=== PATIENT | female | born 1970 | race Caucasian/White ===

== ENCOUNTER 2017-08-10 10:32 | Emergency (ER) | payer BC ==
[~2017-08-10] VITALS: Ht 152.4 cm; Wt 68.0 kg
--- NOTE | 2017-08-10 10:50 | NUR ---
MSE COMPLETED, PT D/C'D HOME, ACI/WORK RELEASE GIVEN. PT AMBULATED W/O DIFF/TOOK ALL BELONGINGS.
[2017-08-10 10:51] VITALS: BP 133/72
== END 2017-08-10 10:52 | disposition home or self-care (01) ==
LOC: ER 10:32
DX: M54.5 Low back pain (principal)
CPT/HCPCS: 99283; A4663

== ENCOUNTER 2017-09-13 08:37 | Emergency (ER) | payer BC, OTHER ==
[~2017-09-13] VITALS: Ht 160 cm; Wt 68.0 kg
--- NOTE | 2017-09-13 09:02 | NUR ---
PT IN BED. PT A&OX4. PT COMPLAINS OF 9/10 LT SHOULDER PAIN X 3 DAYS. PT STATES INJURY OCCURRED WHILE "MOPPING." STRENGTH DEFICIT NOTED COMPARED TO RT ARM. CAP REFILL LESS THAN 3 SEC. CURRENTLY AWAITING MD MARRERO.
--- NOTE | 2017-09-13 10:36 | NUR ---
PT BACK FROM RADIOLOGY. AWAITING FURTHER MD ORDERS.
--- NOTE | 2017-09-13 11:01 | NUR ---
PER MD MARTINEZ, PT STABLE FOR DC. PT A&OX4. PT ABLE TO AMBULATE UNASSISTED W/ STEADY GAIT. PT DECLINED ARM SLING AND PO PAIN MEDS BEFORE DC. PT GIVEN WORK NOTE. PT GIVEN RX. PT GIVEN INSTRUCTIONS TO FOLLOW UP W/ PMD. PT VERBALIZED UNDERSTANDING OF THESE ORDERS.
[2017-09-13] MEDS ORDERED: IBUPROFEN 800 MG TABLET PO ONE (11:15)
[2017-09-13 11:40] VITALS: BP 128/80
[2017-09-13] MEDS ORDERED: LORAZEPAM 2 MG/1 ML VIAL ONE (11:43)
== END 2017-09-13 11:01 | disposition home or self-care (01) ==
LOC: ER 08:37
DX: S49.92XA Unspecified injury of left shoulder and upper arm, initial encounter (principal); X58.XXXA Exposure to other specified factors, initial encounter; Y93.89 Activity, other specified; Y92.89 Other specified places as the place of occurrence of the external cause; Y99.8 Other external cause status
CPT/HCPCS: 72125; 73000; A4663; J2060

== ENCOUNTER 2017-09-13 11:44 | Outpatient (CLI) | payer BC, OTHER ==
[2017-09-13 12:22] LABS: *BILIRUBIN,URIN NEGATIVE (NEGATIVE); *BLOOD, URINE Trace-lysed (NEGATIVE); *CLARITY,URINE TURBID (CLEAR); *COLOR,URINE LIGHT YELLOW (YELLOW); *KETONES,URINE 2+ (NEGATIVE); *PROTEIN,URINE NEGATIVE (NEGATIVE); *UROBILINOGEN,URINE 0.2 E.U./dl (NORMAL); LEUKOCYTE ESTERASE ,URINE 2+ (NEGATIVE); NITRITE, URINE NEGATIVE (NEGATIVE); PH,URINE 5.5 (5.0-8.0); UGLUCOSE NEGATIVE (NEGATIVE)
[2017-09-13 12:24] LABS: THYROID STIMULATING HORMONE 1.632 mIU/mL (0.358-3.740)
[2017-09-13 12:27] LABS: BILIRUBIN,TOTAL 0.7 mg/dL (0.2-1.0); CREATININE 0.6 mg/dL (0.6-1.3); POTASSIUM 3.5 mmol/L (3.5-5.1); TOTAL PROTEIN, SERUM 7.9 g/dL (6.4-8.2)
[2017-09-13 12:45] LABS: BACTERIA,URINE MANY /HPF (NONE SEEN); SQUAMOUS EPITHELIAL CELL,UR MANY /HPF (NONE SEEN)
[2017-09-13 12:53] LABS: BASOPHILS % (AUTO) 0.3 % (0.0-2.0); EOSINOPHILS % (AUTO) 0.2 % (0.0-7.0); HEMATOCRIT 41.8 % (31.2-41.9); HEMOGLOBIN 14.2 g/dL (10.9-14.3); LYMPHOCYTES # (AUTO) 1.2 K/uL (20.0-40.0); LYMPHOCYTES % (AUTO) 13.8 % (20.5-51.5); MEAN CORPUSCULAR HEMOGLOBIN 29.3 uug (24.7-32.8); MEAN CORPUSCULAR HGB CONC 34 g/dL (32.3-35.6); MEAN CORPUSCULAR VOLUME 86.1 fL (75.5-95.3); MONOCYTES # (AUTO) 0.5 K/uL (2.0-10.0); MONOCYTES % (AUTO) 5.4 % (0.0-11.0); NEUTROPHILS # (AUTO) 6.8 K/uL (1.8-8.9); NEUTROPHILS % (AUTO) 80.3 % (38.5-71.5); PLATELET COUNT (AUTO) 273 K/uL (179-408); RED BLOOD CELL COUNT(AUTO) 4.85 MIL/uL (3.63-4.92); WHITE BLOOD COUNT (AUTO) 8.5 K/uL (3.8-11.8)
[2017-09-19 09:32] LABS: *OCCULT BLOOD STOOL NEGATIVE (NEGATIVE)
== END 2017-09-13 23:59 | disposition home or self-care (01) ==
LOC: LAB 11:44
PROVIDERS: ATTEND Internal Medicine
DX: E55.9 Vitamin D deficiency, unspecified (principal); K21.9 Gastro-esophageal reflux disease without esophagitis; R53.81 Other malaise; R53.83 Other fatigue
CPT/HCPCS: 36415; 82306; 84443; 85025; 87086

== ENCOUNTER 2017-09-16 21:41 | Emergency (ER) | payer BC, OTHER ==
[~2017-09-16] VITALS: Ht 152.4 cm; Wt 68.0 kg
[2017-09-16] MEDS ORDERED: HYDROCODONE/APAP 5-325MG TABLET PO ONE (23:00)
--- NOTE | 2017-09-16 23:05 | NUR ---
pt aao x4. able to speak in complete sentences and verbalize needs. here with c/o head injury from fall this morning. pt denies any n/v, and blurred vision. no respiratory and cardiovascular distress noted. not any in acute distress. daughter at bedside.
[2017-09-16] MEDS ORDERED: HYDROCODONE/APAP 5-325MG TABLET ONE (23:18)
--- NOTE | 2017-09-16 23:31 | NUR ---
pt returned from CT with no acute distress noted. pt resting in bed, daughter at bedside.
--- NOTE | 2017-09-16 23:40 | NUR ---
Patient discharged to home in stable conditon. Written and verbal after care instructions given with RX. Patient verbalizes understanding of instructions. Pt walked out of ER with steady and stable gait. Left with daughter, aware to not drive while on RX.
[2017-09-16 23:51] VITALS: BP 120/82
== END 2017-09-16 23:45 | disposition home or self-care (01) ==
LOC: ER 21:41
DX: S09.90XA Unspecified injury of head, initial encounter (principal); W18.2XXA Fall in (into) shower or empty bathtub, initial encounter; Y93.E1 Activity, personal bathing and showering; Y92.89 Other specified places as the place of occurrence of the external cause; Y99.8 Other external cause status
CPT/HCPCS: 70450; A4663

== ENCOUNTER 2017-10-01 13:11 | Outpatient (CLI) | payer BC, OTHER | END 2017-10-01 23:59 | disposition home or self-care (01) | LOC: LAB 13:11 | PROVIDERS: ATTEND Internal Medicine | DX: R91.8 Other nonspecific abnormal finding of lung field (principal) | CPT/HCPCS: 36415; 71046; 86592 ==

== ENCOUNTER 2020-04-29 08:08 | Outpatient (CLI) | payer BC, OTHER ==
[2020-04-29 08:54] LABS: BASOPHILS % (AUTO) 0.7 % (0.0-2.0); EOSINOPHILS # (AUTO) 0.1 K/uL (0.0-0.7); EOSINOPHILS % (AUTO) 1.8 % (0.0-7.0); HEMATOCRIT 42.6 % (31.2-41.9); HEMOGLOBIN 14.4 g/dL (10.9-14.3); LYMPHOCYTES # (AUTO) 1.6 K/uL (20.0-40.0); LYMPHOCYTES % (AUTO) 36.4 % (20.5-51.5); MEAN CORPUSCULAR HEMOGLOBIN 29.2 uug (24.7-32.8); MEAN CORPUSCULAR HGB CONC 34 g/dL (32.3-35.6); MEAN CORPUSCULAR VOLUME 86.3 fL (75.5-95.3); MONOCYTES # (AUTO) 0.3 K/uL (2.0-10.0); MONOCYTES % (AUTO) 7.4 % (0.0-11.0); NEUTROPHILS # (AUTO) 2.4 K/uL (1.8-8.9); NEUTROPHILS % (AUTO) 53.7 % (38.5-71.5); PLATELET COUNT (AUTO) 253 K/uL (179-408); RED BLOOD CELL COUNT(AUTO) 4.93 MIL/uL (3.63-4.92); WHITE BLOOD COUNT (AUTO) 4.4 K/uL (3.8-11.8)
[2020-04-29 08:56] LABS: *BILIRUBIN,URIN NEGATIVE (NEGATIVE); *BLOOD, URINE NEGATIVE (NEGATIVE); *CLARITY,URINE CLOUDY (CLEAR); *COLOR,URINE YELLOW (YELLOW); *KETONES,URINE NEGATIVE (NEGATIVE); *UROBILINOGEN,URINE 0.2 E.U./dl (NORMAL); LEUKOCYTE ESTERASE ,URINE TRACE (NEGATIVE); NITRITE, URINE NEGATIVE (NEGATIVE); PH,URINE 6.5 (5.0-8.0); UGLUCOSE NEGATIVE (NEGATIVE)
[2020-04-29 09:09] LABS: THYROID STIMULATING HORMONE 0.083 mIU/mL (0.358-3.740)
[2020-04-29 09:52] LABS: BILIRUBIN,TOTAL 0.5 mg/dL (0.2-1.0); CREATININE 0.8 mg/dL (0.6-1.3); POTASSIUM 3.9 mmol/L (3.5-5.1); TOTAL PROTEIN, SERUM 7.8 g/dL (6.4-8.2)
[2020-04-29 13:26] LABS: BACTERIA,URINE FEW /HPF (NONE SEEN); RBC,URINE 0-3 /HPF (0-3); SQUAMOUS EPITHELIAL CELL,UR MODERATE /HPF (NONE SEEN); URINE AMORPHOUS PHOSPHATES FEW /HPF
== END 2020-04-29 23:59 | disposition home or self-care (01) ==
LOC: LAB 08:08
PROVIDERS: ATTEND Family Medicine
DX: Z00.01 Encounter for general adult medical examination with abnormal findings (principal)
CPT/HCPCS: 36415; 82306; 84443; 85025; 86803

== ENCOUNTER 2020-05-26 08:31 | Outpatient (CLI) | payer BC, OTHER ==
[2020-05-27 08:06] LABS: TRIIODOTHYRONINE, FREE 3.2 pg/mL (2.0-4.4)
== END 2020-05-26 23:59 | disposition home or self-care (01) ==
LOC: LAB 08:31
PROVIDERS: ATTEND Family Medicine
DX: E05.90 Thyrotoxicosis, unspecified without thyrotoxic crisis or storm (principal)
CPT/HCPCS: 36415; 84481

== ENCOUNTER 2021-03-30 07:15 | Emergency (ER) | payer BC, OTHER ==
[~2021-03-30] VITALS: Ht 152.4 cm; Wt 68.0 kg
--- NOTE | 2021-03-30 07:36 | NUR ---
Pt was triaged and placed in ER waiting room, there are no PUI beds available in ER due to saturation. No s/s of distress noted, pt states she just wants a covid test.
--- NOTE | 2021-03-30 08:41 | NUR ---
Patient discharged to home in stable condition. Written and verbal after care instructions given. Patient verbalizes understanding of instructions. Stressed follow up or return to ER for worsening s/s.
== END 2021-03-30 08:55 | disposition home or self-care (01) ==
LOC: ER 07:15
DX: J02.9 Acute pharyngitis, unspecified (principal); Z20.822 Contact with and (suspected) exposure to COVID-19
CPT/HCPCS: A4663

== ENCOUNTER 2021-04-05 08:55 | Outpatient (CLI) | payer BC, OTHER | END 2021-04-05 23:59 | disposition home or self-care (01) | LOC: LAB 08:55 | PROVIDERS: ATTEND Family Medicine | DX: K21.9 Gastro-esophageal reflux disease without esophagitis (principal); I36.1 Nonrheumatic tricuspid (valve) insufficiency; R94.6 Abnormal results of thyroid function studies | CPT/HCPCS: 86677; 93307 ==

== ENCOUNTER 2021-04-27 06:44 | Outpatient (CLI) | payer BC, OTHER | END 2021-04-27 23:59 | disposition home or self-care (01) | LOC: US 06:44 | PROVIDERS: ATTEND Family Medicine | DX: K82.4 Cholesterolosis of gallbladder (principal); K76.0 Fatty (change of) liver, not elsewhere classified; K76.89 Other specified diseases of liver | CPT/HCPCS: 76700 ==

== ENCOUNTER → 2022-03-15 | Outpatient (CLI) | payer BC, OTHER | END | disposition home or self-care (01) | LOC: RAD 10:40 | PROVIDERS: ATTEND Family Medicine | DX: I36.1 Nonrheumatic tricuspid (valve) insufficiency (principal); E04.1 Nontoxic single thyroid nodule; R10.13 Epigastric pain; I51.9 Heart disease, unspecified; K76.89 Other specified diseases of liver | CPT/HCPCS: 76700; 93307 ==

== ENCOUNTER 2023-02-06 10:34 | Outpatient (CLI) | payer BC, OTHER ==
[2023-02-06 10:50] LABS: HEMATOCRIT 40.6 % (31.2-41.9); MEAN CORPUSCULAR HEMOGLOBIN 28.3 uug (24.7-32.8); MEAN CORPUSCULAR VOLUME 86.6 fL (75.5-95.3); PLATELET COUNT (AUTO) 235 K/uL (179-408)
== END 2023-02-06 23:59 | disposition home or self-care (01) ==
LOC: LAB 10:34
PROVIDERS: ATTEND Family Medicine
DX: D70.9 Neutropenia, unspecified (principal)
CPT/HCPCS: 36415; 85025

== ENCOUNTER 2023-06-13 14:21 | Emergency (ER) | payer BC, OTHER ==
[~2023-06-13] VITALS: Ht 152.4 cm; Wt 65.8 kg
[2023-06-13] MEDS ORDERED: ACETAMINOPHEN 325 MG TABLET ONE (14:40)
[2023-06-13] MEDS ORDERED: ACETAMINOPHEN 325 MG TABLET PO ONE (14:45)
[2023-06-13 16:30] VITALS: BP 139/78; TEMP 98.1; O2SAT 97
== END 2023-06-13 16:31 | disposition home or self-care (01) ==
LOC: ER 14:21
DX: M25.531 Pain in right wrist (principal); W10.9XXA Fall (on) (from) unspecified stairs and steps, initial encounter; Y93.89 Activity, other specified; Y92.89 Other specified places as the place of occurrence of the external cause; Y99.8 Other external cause status
CPT/HCPCS: 73110; A4606; A4663

== ENCOUNTER 2023-09-14 08:40 | Outpatient (CLI) | payer BC, OTHER | END 2023-09-14 23:59 | disposition home or self-care (01) | LOC: US 08:40 | PROVIDERS: ATTEND Internal Medicine Gastroenterology | DX: R14.0 Abdominal distension (gaseous) (principal) | CPT/HCPCS: 76700 ==